=== PATIENT | male | born 1955 | race African-American/Black ===

== ENCOUNTER 2019-05-15 18:28 | Inpatient (IN) | payer OTHER ==
[~2019-05-15] VITALS: Ht 175.3 cm; Wt 81.0 kg
[2019-05-15] MEDS ORDERED: ONDANSETRON HCL 4MG/2ML INJ IV STA (18:58)
[2019-05-15] MEDS ORDERED: SODIUM CHLORIDE 0.9% 1,000 ML IV ONE (18:58)
[2019-05-15 19:26] LABS: BASOPHILS % 0.5 % (0.0-2.0); EOSINOPHILS % 0.3 % (0.0-5.0); HEMATOCRIT. 36.8 % (42.0-52.0); HEMOGLOBIN. 13.1 g/dL (14.0-18.0); LYMPHOCYTES % 25.4 % (20.0-50.0); MEAN CORPUSCULAR HEMOGLOBIN 33.1 pg (28.0-32.0); MEAN PLATELET VOLUME 7.7 fl (7.4-10.4); MONOCYTES % 6.5 % (2.0-8.0); NEUTROPHILS % 67.3 % (40.0-76.0); PLATELET 276 x1000/uL (130-400); RED BLOOD CELL COUNT 3.95 mill/uL (4.7-6.1); RED CELL DISTRIBUTION WIDTH 16.6 % (11.6-14.6)
[2019-05-15 19:33] LABS: CHLORIDE 123 mEq/L (98-107)
[2019-05-15 19:38] LABS: ETHANOL BLOOD < 10 mg/dL
[2019-05-15] MEDS ORDERED: SODIUM BICARBONATE 100 MEQ in DEXTROSE 5% WATER 1,000 ML IV SCH (20:00)
[2019-05-15] MEDS ORDERED: DEXTROSE 50% WATER 50ML SYRINGE IV ONE (20:45)
[2019-05-15 20:51] LABS: CLARITY URINE CLEAR (CLEAR); COLOR URINE YELLOW (YELLOW); KETONES URINE 1+ (NEGATIVE); LEUKOCYTE ESTERASE URINE NEGATIVE (NEGATIVE); NITRITE URINE NEGATIVE (NEGATIVE); OCCULT BLOOD URINE NEGATIVE (NEGATIVE); PH URINE 5.5 (4.5-8.0); PROTEIN URINE TRACE (NEGATIVE); SPECIFIC GRAVITY URINE 1.014 (1.005-1.030); UROBILINOGEN URINE 0.2 E.U./dL (0.2-1.0)
[2019-05-15 21:23] LABS: *AMPHETAMINES SCREEN URINE NEGATIVE (NEGATIVE)
[2019-05-15 21:24] LABS: *BARBITURATES SCREEN URINE NEGATIVE (NEGATIVE); *BENZODIAZEPINES SCREEN URINE NEGATIVE (NEGATIVE); *COCAINE SCREEN URINE NEGATIVE (NEGATIVE); METHADONE URINE SCREEN NEGATIVE (NEGATIVE); OPIATES URINE SCREEN NEGATIVE (NEGATIVE)
[2019-05-15 21:25] LABS: CANNABINOID URINE SCREEN NEGATIVE (NEGATIVE); PHENCYCLIDINE URINE SCREEN NEGATIVE (NEGATIVE)
[2019-05-15] MEDS ORDERED: POTASSIUM CHLORIDE INJ 40 MEQ in DEXT 5% WATER 250 ML IV SCH (23:00)
[2019-05-16] VITALS (9 sets, daily range): BP systolic 81–136; BP diastolic 37–94
[2019-05-16] MEDS ORDERED: TRAZ150T79 PO (03:05)
[2019-05-16] MEDS ORDERED: ATOR10TA PO (03:05)
[2019-05-16] MEDS ORDERED: ZYDS20 PO (03:05)
[2019-05-16] MEDS ORDERED: AMLO2.5T45 PO (03:05)
[2019-05-16] MEDS: DEXT 5%/0.45% NACL 1000ML 1,000 ML IV SCH ×2 (03:30→13:20)
[2019-05-16] MEDS: PANTOPRAZOLE 40MG DR TABLET PO SCH (06:45)
[2019-05-16 06:54] LABS: BASOPHILS % 0.2 % (0.0-2.0); EOSINOPHILS % 0.6 % (0.0-5.0); HEMATOCRIT. 34.7 % (42.0-52.0); HEMOGLOBIN. 12.2 g/dL (14.0-18.0); LYMPHOCYTES % 41.9 % (20.0-50.0); MEAN CORPUSCULAR HEMOGLOBIN 32.7 pg (28.0-32.0); MONOCYTES % 8.3 % (2.0-8.0); PLATELET 278 x1000/uL (130-400); RED BLOOD CELL COUNT 3.73 mill/uL (4.7-6.1); RED CELL DISTRIBUTION WIDTH 16.3 % (11.6-14.6)
[2019-05-16 07:31] LABS: CHLORIDE 120 mEq/L (98-107)
[2019-05-16] MEDS ORDERED: LORAZEPAM 2MG/ML CPJ IV PRN (10:00)
[2019-05-16] MEDS ORDERED: OLANZAPINE 10MG TABLET PO SCH (10:00)
[2019-05-16] MEDS ORDERED: HALOPERIDOL LACTATE 5MG/ML VIAL IM PRN (10:00)
[2019-05-16] MEDS ORDERED: POTASSIUM CHLORIDE 20MEQ TABLET SR PO SCH (10:00)
[2019-05-16] MEDS: OLANZAPINE 10MG TABLET PO SCH ×2 (10:34→16:45)
[2019-05-16] MEDS: NICOTINE 21MG PATCH TD SCH (12:12)
[2019-05-16] MEDS ORDERED: ATORVASTATIN CALCIUM 10MG TABLET PO SCH (21:00)
[2019-05-17] VITALS: BP 118/62
[2019-05-17] MEDS: DEXT 5%/0.45% NACL 1000ML 1,000 ML IV SCH ×2 (02:32→08:58)
[2019-05-17 04:00] VITALS: BP 121/69
[2019-05-17] MEDS: PANTOPRAZOLE 40MG DR TABLET PO SCH (06:37)
[2019-05-17 07:58] LABS: CHLORIDE 118 mEq/L (98-107)
[2019-05-17 08:00] VITALS: BP 144/80
[2019-05-17 08:15] LABS: BASOPHILS % 0.5 % (0.0-2.0); EOSINOPHILS % 0.8 % (0.0-5.0); HEMOGLOBIN. 12.7 g/dL (14.0-18.0); LYMPHOCYTES % 26.1 % (20.0-50.0); MEAN CORPUSCULAR HEMOGLOBIN 33.2 pg (28.0-32.0); MEAN CORPUSCULAR VOLUME 94.2 fL (80.0-94.0); MONOCYTES % 9.1 % (2.0-8.0); NEUTROPHILS % 63.5 % (40.0-76.0); PLATELET 266 x1000/uL (130-400); RED BLOOD CELL COUNT 3.82 mill/uL (4.7-6.1); RED CELL DISTRIBUTION WIDTH 17.3 % (11.6-14.6)
[2019-05-17] MEDS: NICOTINE 21MG PATCH TD SCH (08:57)
[2019-05-17] MEDS: OLANZAPINE 10MG TABLET PO SCH ×2 (08:57→18:44)
[2019-05-17 12:00] VITALS: BP 134/73
[2019-05-17 16:00] VITALS: BP 151/90
[2019-05-17 17:19] VITALS: BP 151/90
[2019-05-18] MEDS ORDERED: FAMOTIDINE 20MG TABLET PO SCH (09:00)
== END 2019-05-17 18:50 | disposition home or self-care (01) | DRG 918 ==
LOC: ER 18:28 → 3WST 21:51 → ENRESERV 05-16 00:19 → 3WST 05-16 04:40 → 8WST 05-16 16:04
PROVIDERS: ADMIT Internal Medicine; ATTEND Internal Medicine
DX: T39.091A Poisoning by salicylates, accidental (unintentional), initial encounter (principal); E87.2 Acidosis; T39.311A Poisoning by propionic acid derivatives, accidental (unintentional), initial encounter; E11.9 Type 2 diabetes mellitus without complications; E87.6 Hypokalemia; E87.8 Other disorders of electrolyte and fluid balance, not elsewhere classified; F17.210 Nicotine dependence, cigarettes, uncomplicated; F20.9 Schizophrenia, unspecified; I10 Essential (primary) hypertension; Y92.89 Other specified places as the place of occurrence of the external cause; Z71.6 Tobacco abuse counseling; Z79.899 Other long term (current) drug therapy
CPT/HCPCS: 36415; 71045; 80048; 80305; 80307; 80320; 80329; 81003; 82140; 82962; 83036; 84443; 93005; 96374; 96375; 99291; J2405; J3480; J3490; J7030; J7040; J7060; J7070; G0480